=== PATIENT | male | born 1970 ===

== ENCOUNTER 2022-10-08 09:16 | Outpatient (CLI) | payer OTHER | END 2022-10-08 09:17 | disposition home or self-care (01) | LOC: DI 09:16 | PROVIDERS: ATTEND Student in an Organized Health Care Education/Training Program | DX: R00.2 Palpitations (principal); I10 Essential (primary) hypertension; E78.5 Hyperlipidemia, unspecified; I77.810 Thoracic aortic ectasia | CPT/HCPCS: 93306 ==

== ENCOUNTER 2022-10-16 10:30 | Day surgery (SDC) | payer OTHER ==
[~2022-10-16 10:30] MED LIST: BUPIVACAINE 0.25% PF 30 ML VIAL ONE; LIDOCAINE 1%-EPI 1:100000 20 ML MDV ONE; ceFAZolin 2 GM VIAL ONE
[2022-10-16] MEDS ORDERED: LACTATED RINGERS 1,000 ML IV ONE ×2 (10:45→14:07)
[2022-10-16] MEDS ORDERED: PROPOFOL 500 MG/50 ML 500 MG/50 ML VIAL ONE (10:50)
[2022-10-16] MEDS ORDERED: ROCURONIUM 50 MG/5 ML VIAL ONE ×2 (10:51→12:56)
[2022-10-16] MEDS ORDERED: ONDANSETRON 4 MG/2 ML VIAL IVP PRN (11:11)
[2022-10-16] MEDS ORDERED: NALOXONE 0.4 MG/ML VIAL IVP PRN (11:11)
[2022-10-16] MEDS ORDERED: fentaNYL 100 MCG/2 ML VIAL IVP PRN (11:11)
[2022-10-16] MEDS ORDERED: ATROPINE ABBOJECT 1 MG/10 ML SYRINGE IVP PRN (11:11)
[2022-10-16] MEDS ORDERED: ePHEDrine 50 MG/ML VIAL IVP PRN (11:11)
[2022-10-16] MEDS ORDERED: HYDROmorphone 0.5 MG/0.5 ML SYRINGE IVP PRN (11:11)
--- NOTE | 2022-10-16 11:11 | ANESTHESIA ---
Pre-Anesthesia VS, & Labs - Diagnosis recurrent left inguinal hernia - Procedure lap left inguinal hernia repair Vital Signs: Temp Pulse Resp BP Pulse Ox O2 Flow Rate 36.5 C 78 11 L 127/88 H 96 0 10/16/22 10:45 10/16/22 10:45 10/16/22 10:45 10/16/22 10:45 10/16/22 10:45 10/16/22 10:45 Height: 6 ft 1 in Weight (kg): 107.2 kg Body Mass Index: 31.1 BMI Classification: Obese - NPO >8 hours - Lab Results Lab results reviewed: Yes Home Medications and Allergies Home Medications: Ambulatory Orders Atorvastatin [Lipitor] 20 mg PO DAILY 09/25/22 Lisinopril [Zestril] 40 mg PO QPM 09/25/22 hydroCHLOROthiazide [Hydrodiuril] 25 mg PO DAILY 09/25/22 Atorvastatin [Lipitor] 20 mg PO DAILY 09/25/22 Lisinopril [Zestril] 40 mg PO QPM 09/25/22 hydroCHLOROthiazide [Hydrodiuril] 25 mg PO DAILY 09/25/22 Allergies/Adverse Reactions: Allergies Allergy/AdvReac Type Severity Reaction Status Date / Time No Known Drug Allergies Allergy Verified 10/16/22 10:51 Anes History & Medical History - Anesthetic History Anesthesia Complications: reports: No previous complications Family history of Anesthesia Complications: Denies Family history of Malignant Hyperthermia: Denies - Medical History Cardiovascular: reports: Hypertension, High cholesterol Pulmonary: reports: None Gastrointestinal: reports: None Urinary: reports: None Musculoskeletal: reports: None Endocrine/Autoimmune: reports: None Skin: reports: None Smoking Status: Never smoker Psychosocial: reports: No issues indicated - Surgical History General: reports: Other Exam General: Alert, Oriented x3, Cooperative Dental: WNL Mouth Openin Fingerbreadth Neck Mobility: Normal Mallampati classification: II Thyromental Distance: 4-6 cm Respiratory: Lungs clear Cardiovascular: Regular rate Plan Anesthesia Type: General Consent for Procedure(s) Verified and Reviewed: Yes Code Status: Attempt Resuscitation ASA classification: 2-Mild systemic disease Is this case an emergency?: No
[2022-10-16] MEDS ORDERED: fentaNYL 100 MCG/2 ML VIAL ONE (11:19)
[2022-10-16] MEDS ORDERED: DEXAMETHASONE 4 MG/ML VIAL ONE (11:20)
[2022-10-16] MEDS ORDERED: ONDANSETRON 4 MG/2 ML VIAL ONE (11:20)
--- NOTE | 2022-10-16 11:29 | HISTORY & PHYSICAL EXAMINATION ---
Chief Complaint - Chief Complaint Chief Complaint: recurrent left inguinal hernia History of Present Illness - History Obtained From Records Reviewed: yes History obtained from: pt Exam Limitations: none - History of Present Illness HPI Comment/Other: history left inguinal hernia repair x 3 all open. has another recurrent hernia. no problems on the right History - Past Medical History Cardiovascular: reports: Hypertension, High cholesterol Respiratory: reports: None Endocrine/Autoimmune: reports: None GI: reports: None : reports: None HEENT: reports: Chronic vision loss Psych: reports: None Musculoskeletal: reports: None Derm: reports: None MRSA Hx?: No - Past Surgical History General: reports: Other Meds/Allgy - Home Medications Home Medications: Ambulatory Orders Medication Instructions Recorded Confirmed Atorvastatin [Lipitor] 20 mg PO DAILY 09/25/22 10/15/22 Lisinopril [Zestril] 40 mg PO QPM 09/25/22 10/15/22 hydroCHLOROthiazide [Hydrodiuril] 25 mg PO DAILY 09/25/22 10/15/22 - Allergies Allergies/Adverse Reactions: Allergies Allergy/AdvReac Type Severity Reaction Status Date / Time No Known Drug Allergies Allergy Verified 10/16/22 10:51 Review of Systems - Other Findings Other Findings: 10 pt ros as above otherwise unremarkable Exam - Vital Signs Vital Signs: Vital Signs x48h Temp Pulse Resp BP Pulse Ox O2 Flow Rate 10/16/22 10:45 36.5 C 78 11 L 127/88 H 96 0 - Physical Exam General Appearance: positive: Alert Eyes Bilateral: positive: PERRL, EOMI ENT: positive: No signs of dehydration Neck: positive: No JVD, Trachea midline Respiratory: positive: No respiratory distress Cardiovascular: positive: Regular rate & rhythm Abdomen: positive: Non-tender, No distention, Other (left inguinal hernia pre sent) Neurologic/Psychiatric: positive: Oriented x3 Conclusion/Plan - Problem List (1) Hernia, inguinal, recurrent Conclusion/Plan: plan laparoscopic left inguinal hernia repair. parq held and consent obtained - Lab Results Lab results reviewed: Yes
[2022-10-16] MEDS ORDERED: BUPIVACAINE 0.25% PF 30 ML VIAL SUBQ ONE (12:00)
[2022-10-16] MEDS ORDERED: LACTATED RINGERS 1,000 ML IV SCH (12:00)
[2022-10-16] MEDS ORDERED: LIDOCAINE-PF 2% 10 ML AMP SUBQ ONE (13:32)
[2022-10-16] MEDS ORDERED: SUGAMMADEX 200 MG/2 ML VIAL IVP ONE (13:32)
[2022-10-16] MEDS ORDERED: HYDROcod/ACETAM 5/325 MG TABLET PO PRN (13:50)
[2022-10-16] MEDS ORDERED: LACTATED RINGERS 100 ML IV ONE (13:51)
--- NOTE | 2022-10-16 13:56 | OPERATIVE REPORT ---
Operative Report - General Procedure Date: 10/16/22 Planned Procedure: laparoscopic repair recurrent left inguinal hernia Pre-Op Diagnosis: recurrent left inguinal hernia x 3 Procedure Performed: laparoscopic repair recurrent left inguinal hernia Post Op Diagnosis: same - Procedure Note Primary Surgeon: torres garcia Anesthesia Technique: General ET tube, Local Pathology: none Estimated Blood Loss (mL): 2 Drain/Tube Type: Other (none) Indications: painful recurrent left inguinal hernia Findings: direct Complications: none - Other Other Information/Narrative: The patient was prepped identified brought to the operating room and placed in supine position. Sequential compression devices were placed. General endotracheal anesthesia was induced. Larson catheter was placed. He was prepped and draped in a sterile fashion and given preoperative antibiotics. Local anesthetic was given to the operative area. A 3 cm infraumbilical incision was made. A 2 and half centimeter incision was made on the fascia just right lateral of midline. The preperitoneal space was developed with digital blunt dissection. A George trocar was placed and secured with 3 interrupted 0 Vicryl sutures. The preperitoneal space was further developed using the scope. In midline two 5 mm trochars were placed. The left inguinal hernia was approached. The preperitoneal space was further developed. The peritoneum was further brought down. There was no indirect inguinal hernia. The inferior epigastrics were kept along the abdominal wall. The patient had a direct inguinal hernia. A pocket was created to allow for large preformed mesh. Bard large preformed mesh was placed and secured at the pubic tubercle along Low's ligament and anteriorly under the rectus musculature. The mesh lay in good position. CO2 was evacuated and trochars removed under vision. Fascia at the periumbilical area was closed with a total of 4 interrupted 0 Vicryl sutures. Skin was closed with a running 4-0 Monocryl subcuticular suture. Dressings were applied. The Larson catheter was removed. The patient tolerated the procedure well was awakened and brought to recovery in good condition.
--- NOTE | 2022-10-16 15:08 | ANESTHESIA POST OP EVALUATION ---
Anesthesia Post Eval - Post Anesthesia Eval Vitals: Last Vital Signs Temp 36.4 C L 10/16/22 14:32 Pulse 81 10/16/22 14:32 Resp 14 10/16/22 14:32 BP 125/90 H 10/16/22 14:32 Pulse Ox 93 10/16/22 14:32 O2 Flow Rate 0 10/16/22 10:45 CV Function Including HR & BP: Stable Pain Control: Satisfactory Nausea & Vomiting: Negative Mental Status: Baseline Respiratory Status: Airway Patent Hydration Status: Satisfactory Anesthesia Complications: None
[2022-10-16 15:22] VITALS: BP 132/90
== END 2022-10-16 10:31 | disposition home or self-care (01) ==
LOC: SDS 10:30
PROVIDERS: ATTEND Surgery
DX: K40.91 Unilateral inguinal hernia, without obstruction or gangrene, recurrent (principal); E66.9 Obesity, unspecified; Z68.31 Body mass index [BMI] 31.0-31.9, adult; I10 Essential (primary) hypertension
CPT/HCPCS: 49651; C1781; J7120